=== PATIENT | male | born 2005 | race Two or more races ===

== ENCOUNTER 2024-09-19 10:49 | Emergency (ER) | payer MEDICAID, OTHER ==
[~2024-09-19] VITALS: Ht 180.3 cm; Wt 54.7 kg
[2024-09-19 13:24] VITALS: BP 111/88; PULSE 63; RESP 16; TEMP 98.7; O2SAT 97
--- NOTE | 2024-09-19 13:24 | ED.PDOC ---
History of Present Illness HPI Comments 19 year old male brought in by clinical resource director presents to the ED with a chief complaint of abscess onset few days. Per clinical resource director, patient was seen at [facility] today due to abscess on LT underarm, with swelling and tender to touch. Due to patient's PMHx autism, bipolar disorder, [facility] sent patient to ED for sedation. No other symptoms or modifying factors present at this time. Chief Complaint: Abscess Time Seen by MD: 13:05 Reviewed Notes: Medications, Allergies Allergies: Coded Allergies: NO KNOWN ALLERGIES (Unverified , 09/19/24) Information Source: Patient, Mental Health Staff Mode of Arrival: Ambulatory Severity: Moderate Timing: Days Duration: Since onset Prehospital treatment: None Past Medical History Past Medical History (Other): bipolar, autism Surgical History: Denies all surgeries Family History Family History: Reviewed,noncontributory to illness, No family hx of Cancer, No family hx of DM, No family hx of Heart francesco, No family hx of HTN, No family hx ofKidney francesco, No family hx of Liver francesco, No family hx of Lung francesco, No family hx of Stroke Social History Smoker: Non-Smoker Alcohol: Denies ETOH Use Drugs: Denies Drug Use Lives In: Home Integumetry: reports: others (Abscess LT underarm ) Physical Exam General Appearance: No Apparent Distress, Normal HEENT: Normal ENT Inspection, Pharynx Normal, TMs Normal Neck: Full Range of Motion, Non-Tender, Normal, Normal Inspection Respiratory: Chest Non-Tender, Lungs Clear, No Accessory Muscle Use, No Respiratory Distress, Normal Breath Sounds Cardiovascular: No Edema, No JVD, No Murmur, No Gallop, Normal Peripheral Pulses, Regular Rate/Rhythm Breast Exam: Deferred Gastrointestinal: No Organomegaly, Non Tender, No Pulsatile Mass, Normal Bowel Sounds, Soft Genitalia: Deferred Pelvic: Deferred Rectal: Deferred Extremities: No calf tenderness, Normal capillary refill, Normal inspection, Normal range of motion, Non-tender, No pedal edema Musculoskeletal : Apperance: Normal Neurologic: Alert, analysis analyst II-XII nml as Tested, No Motor Deficits, Normal Affect, Normal Mood, No Sensory Deficits Cerebellar Function: Normal Reflexes: Normal Skin: Dry, Normal Color, Warm, Other (Small abscess of the left armpit area) Lymphatic: No Adenopathy Was a procedure done? Was a procedure done?: No Differential Dx Considerations may include: Cellulitis, abscess X-Ray, Labs, Meds, VS Vital Signs Date Time Temp Pulse Resp B/P (MAP) Pulse Ox O2 Delivery O2 Flow Rate FiO2 09/19/24 13:24 98.7 78 16 111/88 (96) 97 98.7 09/19/24 13:24 63 16 97 Room Air 09/19/24 10:55 98.6 90 16 122/82 (95) 97 98.6 Time of 1ST Reevaluation: 13:35 Reevaluation 1ST: Unchanged Patient Education/Counseling: Diagnosis, Treatment, Prognosis Family Education/Counseling: Diagnosis, Treatment, Prognosis Departure 1 Departure Time of Disposition: 13:31 (Patient with a small abscess to the armpit. Family went to patient's sedated. Family then said they do not want to wait for a bed and to be able to sedate him and they left.) Impression: Primary Impression: Abscess Disposition: 07 LEFT AWOL/ELOPED Condition: Stable Critical Care Note Critical Care Time?: No Stability Stability form required: No I personally scribed for CITLALLI EL MD ([email or web address]) on 09/19/24 at 13:24. Electronically submitted by Nataliya Russ ([email or web address]). CITLALLI EL MD September 19, 2024 13:24
== END 2024-09-19 13:28 | disposition left against medical advice (07) ==
LOC: ER 10:49
DX: L02.412 Cutaneous abscess of left axilla (principal); F31.9 Bipolar disorder, unspecified; F84.0 Autistic disorder